=== PATIENT | male | born 1980 | race American Indian/Alaskan Native ===

== ENCOUNTER 2016-11-20 20:33 | Emergency (ER) | payer OTHER ==
[2016-11-20] MEDS ORDERED: DECADRON IM STA (22:58)
--- NOTE | 2016-11-20 22:58 | Emergency Department Report ---
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 reports itching. Bit on feet and buttocks. TD UTD. Denies fever or chills. denies wheezing,cough, stridor or sob. Denies swelling of tongue o difficulty breathing. ED Review of Systems ROS: Stated complaint: INSECT BITE Other details as noted in HPI Comment: All other systems reviewed and negative Constitutional: denies: chills, fever Eyes: denies: eye pain ENT: denies: throat pain, epistaxis, congestion Respiratory: no symptoms reported Cardiovascular: denies: chest pain, palpitations, edema, syncope Gastrointestinal: denies: abdominal pain, nausea, vomiting Musculoskeletal: denies: back pain, joint swelling, arthralgia, myalgia Skin: rash, pruritus Neurological: denies: headache, weakness, numbness, paresthesias, confusion, abnormal gait, vertigo ED Past Medical Hx - Past Medical History Previous Medical History?: No - Surgical History Past Surgical History?: No - Family History Family history: no significant - Social History Smoking Status: Never Smoker Substance Use Type: Alcohol - Medications Home Medications: Home Medications Medication Instructions Recorded Confirmed Last Taken Type Cetirizine HCl [ZyrTEC] 10 mg PO QDAY #5 capsule 11/20/16 Unknown Rx predniSONE [Deltasone] 50 mg PO QDAY #5 tab 11/20/16 Unknown Rx Rash Exam - Exam General: Vital signs noted. No distress. Alert and acting appropriately. This is a 36 yo male well nourished , well developed in no acute distress HEENT: No Periorbital Edema, No Conjuctival Injection, No Chemosis, No Perioral Edema, No Tongue Edema, No Uvular Edema, No Compromised Airway, No Drooling Lungs: Yes Good Air Exchange, No Wheezes, No Ronchi, No Stridor, No Cough, No Labored Respirations, No Retractions, No Use of Accessory Muscles, No Other Abnormal Lung Sounds Heart: Yes Regular, No Murmur Skin: Yes Maculopapular Rash (dark spots to feet and 1 to buttocks. no drainage. ), No Urticarial Rash, No Morbilliform rash, No Bulla(e), No Excoriations, No Weeping, No Tenderness, No Erythema, No Edema Other: Positive: Abdomen Normal, Neurologic Normal, Musculoskeletal Normal ED Course Vital Signs 11/20/16 21:06 Temperature 97.8 F Pulse Rate 80 Respiratory 20 Rate Blood Pressure 130/94 [Right] O2 Sat by Pulse 97 Oximetry - Reevaluation(s) Reevaluation #1: 11/20/16 23:52 Patient received decadron 10 mg im for insect bite ED Medical Decision Making - Medical Decision Making ED Course: Patient here complaining of bee sting to feet and buttocks. Patient received decadron 10 mg im in ED. Patient discharge home with prescription for zyrtec and prednisone. Educated on bee sting. No respiratory symptoms. Patient discharge home in stable condition. Critical care attestation.: If time is entered above; I have spent that time in minutes in the direct care of this critically ill patient, excluding procedure time. ED Disposition Clinical Impression: Pruritic condition Bee sting reaction Qualifiers: Encounter type: initial encounter Injury intent: accidental or unintentional Qualified Code(s): T63.441A - Toxic effect of venom of bees, accidental ( unintentional), initial encounter Disposition: DC-01 TO HOME OR SELFCARE Is pt being admited?: No Does the pt Need Aspirin: No Condition: Stable Instructions: Insect Bite or Sting (ED), Itchy Skin (ED) Additional Instructions: Keep affected areas clean and dry increase fluid intake Take medication as prescribed Prescriptions: Cetirizine HCl [ZyrTEC] 10 mg PO QDAY #5 capsule predniSONE [Deltasone] 50 mg PO QDAY #5 tab Referrals: PRIMARY CARE, [Primary Care Provider] - 2-3 Days Forms: Work/School Release Form(ED)
[2016-11-21 00:05] VITALS: BP 132/86
== END 2016-11-21 00:05 | disposition home or self-care (01) ==
LOC: ED 20:33
DX: L29.9 Pruritus, unspecified (principal); T63.441A Toxic effect of venom of bees, accidental (unintentional), initial encounter; Y93.89 Activity, other specified; Y99.9 Unspecified external cause status; Y92.89 Other specified places as the place of occurrence of the external cause
CPT/HCPCS: 96372; 99282; J1100